=== PATIENT | female | born 1990 | race Caucasian/White ===

== ENCOUNTER 2021-09-16 01:32 | Emergency (ER) | payer OTHER ==
[~2021-09-16] VITALS: Ht 167.6 cm; Wt 61.0 kg
[2021-09-16] MEDS ORDERED: ACETAMINOPHEN 325MG TABLET PO STA (05:25)
[2021-09-16] MEDS ORDERED: SULF1TAB48 PO (06:19)
[2021-09-16] MEDS ORDERED: NAPR-681 PO (06:19)
[2021-09-16 06:34] VITALS: BP 130/82
== END 2021-09-16 06:35 | disposition home or self-care (01) ==
LOC: ER 01:32
DX: L03.116 Cellulitis of left lower limb (principal); M79.671 Pain in right foot
CPT/HCPCS: 99283